=== PATIENT | female | born 1990 | race Caucasian/White ===

== ENCOUNTER 2017-05-09 20:18 | Emergency (ER) | payer SELFPAY ==
[~2017-05-09] VITALS: Ht 167.6 cm; Wt 59.1 kg
[2017-05-09 20:34] VITALS: BP 138/104
[2017-05-09 20:48] LABS: COLLECTION METHOD CLEAN CATCH
[2017-05-09 20:59] LABS: MUCOUS Present /lpf; PH 6 (5-8); URINE APPEARANCE Hazy; URINE BACTERIA None Seen /hpf; URINE BILIRUBIN Negative (NEGATIVE); URINE BLOOD 1+ (NEGATIVE); URINE COLOR Yellow; URINE GLUCOSE Negative (NEGATIVE); URINE KETONE Negative (NEGATIVE); URINE LEUKOCYTE ESTERASE Negative (NEGATIVE); URINE NITRATE Negative (NEGATIVE); URINE PROTEIN(semi-quant) Negative (NEGATIVE); URINE RBC 20-50 /hpf
[2017-05-09 21:10] LABS: TRICYCLIC ANTIDEPRESS URINE NEGATIVE
[2017-05-09 21:24] LABS: BASO % 0.2 % (0.0-2.0); EOS # 0.1 (0.0-0.7); EOS % 0.7 % (0-4.0); GRAN # 6.4 (1.4-6.5); GRAN % 59.6 % (42.2-75.2); HEMATOCRIT 38.1 % (37.0-47.0); HEMOGLOBIN 12.8 g/dl (12.5-16.0); LYMPH # 3.4 (1.2-3.4); LYMPH % 31.6 % (20.0-51.0); MEAN CELL VOLUME 94 fl (80.0-100.0); MEAN CORPUSCULAR HEMOGLOBIN 31 pg (27.0-31.0); MEAN CORPUSCULAR HGB CONC 34 g/dl (33.0-37.0); MEAN PLATELET VOLUME 8.9 fl (7.4-10.4); MONO # 0.8 (0.1-0.6); MONO % 7.6 % (1.7-9.3); PLATELET COUNT 270 K/mm3 (130-400); RED BLOOD COUNT 4.07 M/mm3 (4.10-5.30); REDCELL DISTRIBUTION WIDTH-CV 12.5 % (11.5-14.5)
[2017-05-09 21:35] LABS: ALANINE AMINOTRANSFERASE 31 U/L (9-52); ALBUMIN 4.5 gm/dL (3.5-5.0); ALKALINE PHOSPHATASE 91 U/L (50-136); ANION GAP 9 mmol/L (7-16); AST,SGOT 20 U/L (15-37); BILIRUBIN,TOTAL 0.5 mg/dL (0.0-1.0); BLOOD UREA NITROGEN 10 mg/dL (7-17); CALCIUM 9.3 mg/dL (8.4-10.2); CARBON DIOXIDE 24 mmol/L (22-30); CHLORIDE 104 mmol/L (98-107); GLUCOSE 122 mg/dL (74-106); POTASSIUM 3.2 mmol/L (3.4-5.0); SODIUM 137 mmol/L (137-145); TOTAL PROTEIN 7.5 gm/dL (6.4-8.2)
[2017-05-09 21:57] LABS: ACETAMINOPHEN < 10 ug/mL (10-30); ALCOHOL(ethanol),MEDICAL < 10 mg/dL; SALICYLATE < 1.0 mg/dL
[2017-05-10 01:12] VITALS: PULSE 102
== END 2017-05-10 01:13 | disposition home or self-care (01) ==
LOC: COL.ER 20:18
PROVIDERS: Emergency Medicine
DX: F15.10 Other stimulant abuse, uncomplicated (principal); F10.129 Alcohol abuse with intoxication, unspecified; F41.9 Anxiety disorder, unspecified; F31.9 Bipolar disorder, unspecified; F43.10 Post-traumatic stress disorder, unspecified; F12.90 Cannabis use, unspecified, uncomplicated; F17.210 Nicotine dependence, cigarettes, uncomplicated; Z98.890 Other specified postprocedural states

== ENCOUNTER 2017-05-20 10:09 | Emergency (ER) | payer MEDICAID ==
[~2017-05-20] VITALS: Ht 167.6 cm; Wt 65.9 kg
[2017-05-20 10:15] VITALS: TEMP 97.8
[2017-05-20] MEDS ORDERED: CELEXA40 MG PO (10:15)
[2017-05-20] MEDS ORDERED: NEOMYCIN/POLY B10 ML OT (11:01)
[2017-05-20 11:22] VITALS: BP 120/85; PULSE 90
== END 2017-05-20 11:22 | disposition home or self-care (01) ==
LOC: COL.ER 10:09
DX: H60.91 Unspecified otitis externa, right ear (principal); R68.84 Jaw pain; F17.210 Nicotine dependence, cigarettes, uncomplicated

== ENCOUNTER 2017-05-30 14:29 | Emergency (ER) | payer MEDICAID ==
[~2017-05-30] VITALS: Ht 167.6 cm; Wt 65.9 kg
[~2017-05-30 14:29] MED LIST: CELEXA40 MG PO; NEOMYCIN/POLY B10 ML OT
[2017-05-30 14:33] VITALS: BP 101/69; PULSE 116; TEMP 98.7
== END 2017-05-30 16:43 | disposition home or self-care (01) ==
LOC: COL.ER 14:29
DX: H92.01 Otalgia, right ear (principal); F41.9 Anxiety disorder, unspecified; Z88.0 Allergy status to penicillin